=== PATIENT | female | born 1980 | race African-American/Black ===

== ENCOUNTER 2018-01-29 15:51 | Emergency (ER) | payer OTHER ==
--- NOTE | 2018-01-29 16:00 | PDOC ---
Rapid Medical Evaluation Time Seen by Provider: 01/29/18 15:57 Medical Evaluation: Allergies Allergy/AdvReac Type Severity Reaction Status Date / Time No Known Allergies Allergy Verified 01/29/18 15:56 01/29/18 15:57 I have performed a brief in-person evaluation of this patient. the patient presents with a chief complaint of burning with urination, and thick discharge x 1 week Pertinent physical exam findings: NAD even and unlabored breathing non tender abdomen, mild tenderness over mid suprapubis area I have ordered the following: urinalysis, urine culture The patient will proceed to the
[2018-01-29 16:02] VITALS: BP 123/65; PULSE 84; TEMP 99.1; BMI 29.2
[2018-01-29] MEDS ORDERED: AZITHROMYCIN 1 GM PACKET PO ONE (16:38)
--- NOTE | 2018-01-29 16:38 | PDOC ---
History of Present Illness - General Chief Complaint: Urinary Problem Stated Complaint: EVALUATION Time Seen by Provider: 01/29/18 15:57 History Source: Patient Exam Limitations: No Limitations - History of Present Illness Initial Comments: 01/29/18 16:35 c/o one week vaginal discharge and burning with urination. denies abd pain or rectal pain. Pt states she is sexually active with one women using dildos . Pt states the dildo causes her discomfort and then notices a discharge. pt states she only has the discharge when using the dildo. no allergies . Timing/Duration: reports: constant Quality: reports: mild Past History - Past Medical History Allergies/Adverse Reactions: Allergies Allergy/AdvReac Type Severity Reaction Status Date / Time No Known Allergies Allergy Verified 01/29/18 15:56 Home Medications: Ambulatory Orders Mirtazapine [Remeron -] 30 mg PO DAILY 01/29/18 metroNIDAZOLE 0.75% VAG. GEL [Metrogel 0.75% *Vaginal Gel* -] 1 applic VG HS #5 tube 01/29/18 COPD: No Other medical history: HEMOPHILIA - Suicide/Smoking/Psychosocial Hx Smoking History: Current some day smoker Have you smoked in the past 12 months: Yes Number of Cigarettes Smoked Daily: 3 Information on smoking cessation initiated: No *Physical Exam - Vital Signs Last Vital Signs Temp Pulse Resp BP Pulse Ox 99.1 F 84 19 123/65 100 01/29/18 15:56 01/29/18 15:56 01/29/18 15:56 01/29/18 15:56 01/29/18 15:56 - Physical Exam General Appearance: Yes: Nourished, Appropriately Dressed HEENT: positive: EOMI, KIM Neck: positive: Supple Respiratory/Chest: positive: Lungs Clear, Normal Breath Sounds Cardiovascular: positive: Regular Rhythm, Regular Rate Female Pelvic Exam: positive: discharge (white discharge , watery). negative: normal size ovaries, adnexal tenderness Gastrointestinal/Abdominal: positive: Normal Bowel Sounds, Soft Lymphatic: negative: Adenopathy Musculoskeletal: positive: Normal Inspection Extremity: positive: Normal Capillary Refill, Normal Inspection, Normal Range of Motion Integumentary: positive: Normal Color, Dry, Warm Neurologic: positive: Fully Oriented, Alert, Normal Mood/Affect, Normal Response , Motor Strength 5/5 Medical Decision Making - Medical Decision Making 01/29/18 16:38 cc: vaginal discharge urinary burning and urgency denies back pain or abd pain no history of STD in the past will treat to cover for Gc/Chlamydia *DC/Admit/Observation/Transfer Diagnosis at time of Disposition: Vaginitis Qualifiers: Chronicity: acute Qualified Code(s): N76.0 - Acute vaginitis - Discharge Dispostion Disposition: HOME Condition at time of disposition: Good - Prescriptions Prescriptions: metroNIDAZOLE 0.75% VAG. GEL [Metrogel 0.75% *Vaginal Gel* -] 1 applic VG HS #5 tube - Referrals - Patient Instructions Additional Instructions: no sexual activity and symptoms have resolved and you are notified of the results of the tests done today follow up with [facility] for annual HIV testing any worsening symptoms return to the ER - Post Discharge Activity
[2018-01-29] MEDS ORDERED: AZITHROMYCIN 250 MG TABLET ONE (16:42)
[2018-01-29] MEDS ORDERED: LIDOCAINE HCL 1%, 10 MG/ML (20ML VIAL) ONE (16:46)
[2018-01-29 16:54] LABS: URINE APPEARANCE CLEAR; URINE BILIRUBIN NEGATIVE (<2.0 mg/dL); URINE COLOR YELLOW; URINE GLUCOSE (UA) NEGATIVE (NEGATIVE); URINE KETONE NEGATIVE (NEGATIVE); URINE LEUK ESTERASE NEGATIVE (NEGATIVE); URINE NITRITE NEGATIVE (NEGATIVE); URINE PROTEIN NEGATIVE (NEGATIVE); URINE UROBILINOGEN NEGATIVE mg/dL (0.2-1.0)
[2018-01-29 17:41] LABS: EPI CELLS RARE /HPF (FEW); URINE MUCUS RARE
== END 2018-01-29 17:40 | disposition home or self-care (01) ==
LOC: JERFT 15:51
DX: N76.0 Acute vaginitis (principal); F17.210 Nicotine dependence, cigarettes, uncomplicated
CPT/HCPCS: 36415; 81003; 81015; 87070; 87086; 87186; 87205; 87491; 87591; 99281-25

== ENCOUNTER 2018-05-12 17:19 | Emergency (ER) | payer SELFPAY ==
--- NOTE | 2018-05-12 17:29 | PDOC ---
Rapid Medical Evaluation Time Seen by Provider: 05/12/18 17:27 Medical Evaluation: Allergies Allergy/AdvReac Type Severity Reaction Status Date / Time No Known Allergies Allergy Verified 01/29/18 15:56 05/12/18 17:27 I have performed a brief in-person evaluation of this patient. The patient presents with a chief complaint of: dysuria and urinary frequency X1wk Pertinent physical exam findings:none I have ordered the following:ua/ucx The patient will proceed to the ED for further evaluation. Discharge Disposition - Diagnosis Urinary frequency - Referrals - Patient Instructions - Post Discharge Activity
[2018-05-12 17:32] VITALS: BP 127/68; PULSE 82; TEMP 98; BMI 29.3
--- NOTE | 2018-05-12 18:17 | PDOC ---
History of Present Illness - General Chief Complaint: Urinary Problem Stated Complaint: UTI Time Seen by Provider: 05/12/18 17:27 History Source: Patient Exam Limitations: Clinical Condition - History of Present Illness Initial Comments: 05/12/18 18:12 Patient with no sig Past medical history present with complain of 1 week history of urinary frequency and dysuria and burning with urination. Patient also report feeling of a bump on vulva area in the right side which is painful for 2 weeks now. Denies any vaginal discharge, bleeding or any other symptoms. Patient is sexually active with one female partner. Timing/Duration: 1 week Past History - Past Medical History Allergies/Adverse Reactions: Allergies Allergy/AdvReac Type Severity Reaction Status Date / Time No Known Allergies Allergy Verified 05/12/18 17:32 Home Medications: Ambulatory Orders Mirtazapine [Remeron -] 30 mg PO DAILY 01/29/18 Fluconazole [Diflucan] 150 mg PO ONCE #1 tablet 05/12/18 Mupirocin Ointment [Bactroban 2% Ointment -] 1 applic TP BID #1 tube 05/12/18 Sulfamethoxazole/Trimethoprim [Bactrim Ds Tablet] 1 each PO BID 5 Days #10 tablet 05/12/18 COPD: No - Suicide/Smoking/Psychosocial Hx Smoking History: Never smoked Have you smoked in the past 12 months: No Number of Cigarettes Smoked Daily: 3 Information on smoking cessation initiated: No Hx Alcohol Use: No Drug/Substance Use Hx: No Review of Systems - Review of Systems Able to Perform ROS?: Yes Is the patient limited [place] proficient: No Constitutional: No: Chills, Diaphoresis, Fever, Loss of Appetite, Malaise, Night Sweats, Weakness, Weight Stable, Unintentional Wgt. Loss, Unexplained wgt Loss, Other HEENTM: No: Eye Pain, Blurred Vision, Tearing, Recent change in vision, Double Vision, Cataracts, Ear Pain, Ocular Prothesis, Ear Discharge, Nose Pain, Nose Congestion, Tinnitus, Nose Bleeding, Hearing Loss, Throat Pain, Throat Swelling , Mouth Pain, Dental Problems, Difficulty Swallowing, Mouth Swelling, Other Respiratory: No: Cough, Orthopnea, Shortness of Breath, SOB with Exertion, SOB at Rest, Stridor, Wheezing, Productive cough, Hemoptysis, Other Cardiac (ROS): No: Chest Pain, Edema, Irregular Heart Rate, Lightheadedness, Palpitations, Syncope, Chest Tightness, Other ABD/GI: No: Abdominal Distended, Abd. Pain w/ defecation, Blood Streaked Bowels , Constipated, Diarrhea, Difficulty Swallowing, Nausea, Poor Appetite, Poor Fluid Intake, Rectal Bleeding, Vomiting, Indigestion, Abdominal cramping, Tarry Stools, Other : Yes: See HPI, Burning, Dysuria, Frequency. No: Flank Pain, Incontinence, Urgency Musculoskeletal: No: Back Pain, Gout, Joint Pain, Joint Swelling, Muscle Pain, Muscle Weakness, Neck Pain, Joint Stiffness, Other Integumentary: Yes: See HPI, Lumps (right vulva area). No: Erythema, Pruritus All Other Systems: Reviewed and Negative *Physical Exam - Vital Signs Last Vital Signs Temp Pulse Resp BP Pulse Ox 98.0 F 82 16 127/68 100 05/12/18 17:29 05/12/18 17:29 05/12/18 17:29 05/12/18 17:29 05/12/18 17:29 - Physical Exam Comments: 05/12/18 18:14 GENERAL: Well developed, well nourished. Awake and alert. No acute distress. HEENT: Normocephalic, atraumatic. PERRLA, EOMI. No conjunctival pallor. Sclera are non- icteric. Moist mucous membranes. Oropharynx is clear. NECK: Supple. Full ROM. No JVD. Carotid pulses 2+ and symmetric, without bruits. No thyromegaly. No lymphadenopathy. CARDIOVASCULAR: Regular rate and rhythm. No murmurs, rubs, or gallops. Distal pulses are 2+ and symmetric. PULMONARY: No evidence of respiratory distress. Lungs clear to auscultation bilaterally. No wheezing, rales or rhonchi. ABDOMINAL: Soft. Non-tender. Non-distended. No rebound or guarding. No organomegaly. Normoactive bowel sounds. MUSCULOSKELETAL Normal range of motion at all joints. No bony deformities or tenderness. No CVA tenderness. EXTREMITIES: No cyanosis. No clubbing. No edema. No calf tenderness. SKIN: small 1mm hard induration to right labia majora of vulva c/w folliculitis from shaving. : small amount of patchy white non-malodorous discharge in vaginal vault. no visible lesions. no blood in vault NEUROLOGICAL: Alert, awake, appropriate. Cranial nerves 2-12 intact. No deficits to light touch and temperature in face, upper extremities and lower extremities. No motor deficits in the in face, upper extremities and lower extremities. Normoreflexic in the upper and lower extremities. Normal speech. Toes are down- going bilaterally. Gait is normal without ataxia. PSYCHIATRIC: Cooperative. Good eye contact. Appropriate mood and affect. General Appearance: Yes: Nourished, Appropriately Dressed. No: Apparent Distress Medical Decision Making - Medical Decision Making 05/12/18 18:17 Patient with no sig Past medical history present with complain of of a week history of urinary frequency and dysuria and burning with urination. Patient also with complain of bump on right vulvar area. Exam shows small hard induration to right labia majora consistent with folliculitis from shaving. Vaginal exam shows small amounts of white discharge in vaginal vault. Cultures of discharge sent. UA and urine culture sent. Treat based on urinary results *DC/Admit/Observation/Transfer Diagnosis at time of Disposition: Urinary frequency, Folliculitis Vaginitis Qualifiers: Chronicity: acute Qualified Code(s): N76.0 - Acute vaginitis - Discharge Dispostion Disposition: HOME Condition at time of disposition: Stable Decision to Admit order: No - Prescriptions Prescriptions: Fluconazole [Diflucan] 150 mg PO ONCE #1 tablet Mupirocin Ointment [Bactroban 2% Ointment -] 1 applic TP BID #1 tube Sulfamethoxazole/Trimethoprim [Bactrim Ds Tablet] 1 each PO BID 5 Days #10 tablet - Referrals Referrals: Lara Vogt MD [Staff Physician] - - Patient Instructions Printed Discharge Instructions: Vaginal Yeast Infection, DI for Urinary Tract Infection (UTI) Additional Instructions: Take medication as prescribed. Follow up with her [employer] TECHNICIAN for reassessment - Post Discharge Activity Forms/Work/School Notes: Back to Work
[2018-05-12 18:51] LABS: URINE APPEARANCE SLCLOUDY; URINE BILIRUBIN NEGATIVE (<2.0 mg/dL); URINE COLOR YELLOW; URINE GLUCOSE (UA) NEGATIVE (NEGATIVE); URINE KETONE NEGATIVE (NEGATIVE); URINE NITRITE POSITIVE (NEGATIVE); URINE UROBILINOGEN NEGATIVE mg/dL (0.2-1.0)
[2018-05-12 18:52] LABS: URINE LEUK ESTERASE 2+ (NEGATIVE); URINE PROTEIN 1+ (NEGATIVE)
[2018-05-12 19:21] LABS: EPI CELLS RARE /HPF (FEW); URINE BACTERIA MODERATE /hpf (NONE SEEN); URINE MUCUS RARE
[2018-05-12 19:36] LABS: HCG,QUALITATIVE URINE Negative
== END 2018-05-12 19:03 | disposition home or self-care (01) ==
LOC: JERFT 17:19
DX: R35.0 Frequency of micturition (principal); N76.0 Acute vaginitis; L73.9 Follicular disorder, unspecified
CPT/HCPCS: 81003; 81015; 84703; 87070; 87086; 87186; 87205; 99281-25

== ENCOUNTER 2018-07-13 10:18 | Emergency (ER) | payer BC, OTHER ==
[2018-07-13 10:34] VITALS: BP 122/66; PULSE 90; TEMP 99.6; BMI 29.0
[2018-07-13] MEDS ORDERED: ACETAMINOPHEN 325 MG TABLET (FP) PO ONE (10:59)
[2018-07-13] MEDS ORDERED: ACETAMINOPHEN 325 MG TABLET (FP) ONE (11:00)
--- NOTE | 2018-07-13 11:04 | PDOC ---
History of Present Illness - General Chief Complaint: Cold Symptoms Stated Complaint: FLU LIKE SYMPTOMS Time Seen by Provider: 07/13/18 10:54 History Source: Patient Exam Limitations: No Limitations - History of Present Illness Initial Comments: 07/13/18 10:59 38 yr female with c/o headache sore throat runny nose body aches and fever, neg nvd. girlfriend with same symptoms. no PMHX no allergies, pt is a smoker. Severity: reports: moderate Episode Description: 2-3 days Past History - Past Medical History Allergies/Adverse Reactions: Allergies Allergy/AdvReac Type Severity Reaction Status Date / Time No Known Allergies Allergy Verified 07/13/18 10:31 Home Medications: Ambulatory Orders NK [No Known Home Medication] 07/13/18 COPD: No - Suicide/Smoking/Psychosocial Hx Smoking History: Never smoked Have you smoked in the past 12 months: No Number of Cigarettes Smoked Daily: 3 Hx Alcohol Use: No Drug/Substance Use Hx: No Review of Systems - Review of Systems Able to Perform ROS?: Yes Is the patient limited [place] proficient: No Constitutional: Yes: Symptoms Reported HEENTM: Yes: Symptoms Reported Respiratory: Yes: Symptoms reported, Cough Cardiac (ROS): No: Symptoms Reported ABD/GI: No: Symptoms Reported : No: Symptoms Reported Musculoskeletal: Yes: Symptoms Reported *Physical Exam - Vital Signs Last Vital Signs Temp Pulse Resp BP Pulse Ox 99.6 F 90 18 122/66 99 07/13/18 10:32 07/13/18 10:32 07/13/18 10:32 07/13/18 10:32 07/13/18 10:32 - Physical Exam General Appearance: Yes: Nourished, Appropriately Dressed HEENT: positive: EOMI, KIM, TMs Normal. negative: Nasal Congestion Neck: positive: Supple. negative: Tender Respiratory/Chest: positive: Lungs Clear, Normal Breath Sounds. negative: Chest Tender Cardiovascular: positive: Regular Rhythm, Regular Rate Gastrointestinal/Abdominal: positive: Normal Bowel Sounds, Soft Musculoskeletal: positive: Normal Inspection Extremity: positive: Normal Capillary Refill, Normal Inspection, Normal Range of Motion Integumentary: positive: Normal Color, Dry, Warm Neurologic: positive: ethanol operations manager II-XII NML intact, Fully Oriented, Alert, Normal Mood/ Affect, Normal Response, Motor Strength 5/5 Medical Decision Making - Medical Decision Making 07/13/18 11:04 cc: headache body aches, sore throat will check rapid strep and flu swab tylenol now *DC/Admit/Observation/Transfer Diagnosis at time of Disposition: Upper respiratory infection, viral - Discharge Dispostion Disposition: HOME Condition at time of disposition: Good - Referrals Referrals: Naif Hoover MD [Staff Physician] - - Patient Instructions Printed Discharge Instructions: DI for Viral Upper Respiratory Infection -- Adult Additional Instructions: you do not have the FLU or strep throat you have a cold virus upper respiratory drink pleanty of fluids take tylenol or ibuprofen as directed for pain (over the counter) get vicks vapor rub to put on throat and chest at bedtime increase your intake of vitamin C , oranges, orange juice or vitamin c supplements follow with your doctor if any worsening symptoms or if you need a primary care call the doctor below - Post Discharge Activity Forms/Work/School Notes: Back to Work
== END 2018-07-13 12:00 | disposition home or self-care (01) ==
LOC: JERFT 10:18
DX: J06.9 Acute upper respiratory infection, unspecified (principal); B97.89 Other viral agents as the cause of diseases classified elsewhere
CPT/HCPCS: 87070; 87430; 87804; 99281-25

== ENCOUNTER 2018-08-01 17:22 | Emergency (ER) | payer BC, OTHER ==
[2018-08-01 17:31] VITALS: BP 115/74; PULSE 86; TEMP 98.7; BMI 25.0
--- NOTE | 2018-08-01 17:36 | PDOC ---
History of Present Illness - General Chief Complaint: Vaginal Sxs Stated Complaint: ABDOMINAL PAIN Time Seen by Provider: 08/01/18 17:36 - History of Present Illness Initial Comments: 08/01/18 17:37 Ms. Dawson is a 38 yo female w/ no significant pmh who presents for evaluation of 2 week history of "bump" adjacent to her genital area that she reports has been bothering her. Ms. Dawson relates she had a similar presentation previously and was given mupirocin for an "ingrown hair" however reports the same cream she had left over has been unhelpful. Patient reports she noticed some discharge as well while cleaning herself however has been unable to visualize the area. The patient denies chest pain, shortness of breath, headache and dizziness. Denies fever, chills, nausea, vomit, diarrhea and constipation. Denies dysuria, frequency, urgency and hematuria. Past History - Past Medical History Allergies/Adverse Reactions: Allergies Allergy/AdvReac Type Severity Reaction Status Date / Time No Known Allergies Allergy Verified 07/13/18 10:31 Home Medications: Ambulatory Orders Cephalexin [Keflex] 500 mg PO QID #40 capsule 08/01/18 Sulfamethoxazole/Trimethoprim [Bactrim Ds -] 2 tab PO BID #40 tablet 08/01/18 COPD: No CHF: No - Suicide/Smoking/Psychosocial Hx Smoking History: Never smoked Have you smoked in the past 12 months: No Number of Cigarettes Smoked Daily: 3 Information on smoking cessation initiated: No Hx Alcohol Use: No Drug/Substance Use Hx: No Substance Use Type: None Review of Systems - Review of Systems Comments:: 08/01/18 17:38 GENERAL/CONSTITUTIONAL: No fever or chills. No weakness. HEAD, EYES, EARS, NOSE AND THROAT: No change in vision. No ear pain or discharge. No sore throat. CARDIOVASCULAR: No chest pain or shortness of breath RESPIRATORY: No cough, wheezing, or hemoptysis. GASTROINTESTINAL: No nausea, vomiting, diarrhea or constipation. GENITOURINARY: +Symptoms as described. No other dysuria, frequency, or change in urination. MUSCULOSKELETAL: No joint or muscle swelling or pain. No neck or back pain. SKIN: No rash NEUROLOGIC: No headache, vertigo, loss of consciousness, or change in strength/ sensation. ENDOCRINE: No increased thirst. No abnormal weight change HEMATOLOGIC/LYMPHATIC: No anemia, easy bleeding, or history of blood clots. ALLERGIC/IMMUNOLOGIC: No hives or skin allergy. *Physical Exam - Vital Signs Last Vital Signs Temp Pulse Resp BP Pulse Ox 98.7 F 86 16 115/74 100 08/01/18 17:22 08/01/18 17:22 08/01/18 17:22 08/01/18 17:22 08/01/18 17:22 - Physical Exam Comments: 08/01/18 17:38 GENERAL: Awake, alert, and fully oriented, in no acute distress HEAD: No signs of trauma, normocephalic, atraumatic EYES: PERRLA, EOMI, sclera anicteric, conjunctiva clear ENT: Auricles normal inspection, hearing grossly normal, nares patent, oropharynx clear without exudates. Moist mucosa NECK: Normal ROM, supple, no lymphadenopathy, JVD, or masses LUNGS: No distress, speaks full sentences, clear to auscultation bilaterally HEART: Regular rate and rhythm, normal S1 and S2, no murmurs, rubs or gallops, peripheral pulses normal and equal bilaterally. ABDOMEN: Soft, nontender, normoactive bowel sounds. No guarding, no rebound. No masses EXTREMITIES: Normal inspection, Normal range of motion, no edema. No clubbing or cyanosis. NEUROLOGICAL: Cranial nerves II through XII grossly intact. Normal speech, normal gait, no focal sensorimotor deficits SKIN: Warm, Dry, normal turgor, no rashes or lesions noted. RECTAL: +2cm x 3cm indurated area on left buttock. Rectal exam negative for tracking. Medical Decision Making - Medical Decision Making 08/01/18 18:14 Ms. Dawson is a 38 yo female w/ pmh as described who presents for evaluation of indurated region as described. Patient requesting STD/HIV testing as well. Bedside US revealed no drainable area in region. Patient counceled and placed on keflex and bactrim for 10 days. 08/01/18 19:40 Labs significant for urine WBC's as below. Covered with previously proscribed keflex. HIV negative. GC pending and will contact patient if positive. Discharging to home. Laboratory Results - last 24 hr 08/01/18 08/01/18 18:30 18:35 Urine Color Yellow Urine Appearance Clear Urine pH 6.0 Ur Specific [place] 1.027 Urine Protein Negative Urine Glucose (UA) Negative Urine Ketones Negative Urine Blood Negative Urine Nitrite Negative Urine Bilirubin Negative Urine Urobilinogen Negative Ur Leukocyte Esterase 1+ H Urine WBC (Auto) 33 Urine RBC (Auto) 6 Ur Epithelial Cells Rare Urine Mucus Rare Urine HCG, Qual Negative HIV 1&2 Antibody Screen Negative HIV P24 Antigen Negative *DC/Admit/Observation/Transfer Diagnosis at time of Disposition: Soft tissue infection - Discharge Dispostion Disposition: HOME - Prescriptions Prescriptions: Cephalexin [Keflex] 500 mg PO QID #40 capsule Sulfamethoxazole/Trimethoprim [Bactrim Ds -] 2 tab PO BID #40 tablet - Referrals Referrals: Dayami Corrigan MD [Primary Care Provider] - Kvng Holguin MD [Staff Physician] - - Patient Instructions Printed Discharge Instructions: DI for Anal Abscess Additional Instructions: You were evaluated today in the ED for your abscess. We were unable to drain it at this time. We have sent prescriptions to your pharmacy. Please take all medications as proscribed. Follow-up with primary care provider early next week for further evaluation. Return to ER if any fevers, chills, increase in pain, or you observe changes of area. - Post Discharge Activity
--- NOTE | 2018-08-01 17:45 | PDOC ---
Attending Attestation - Resident Resident Name: Kevin Burton - ED Attending Attestation I have performed the following: I have examined & evaluated the patient, The case was reviewed & discussed with the resident, I agree w/resident's findings & plan, Exceptions are as noted - Medical Decision Making 08/01/18 17:45 I, Dr. Rosaura St, DO, attest that this document has been prepared under my direction and personally reviewed by me in its entirety. I further attest, that it accurately reflects all work, treatment, procedures and medical decision -making performed by me. 08/01/18 18:28 a/p: 38yo female with L buttock swelling -pt with ingrown hair causing buttock induration -no fluctuance -no warmth or redness, no drainage -3x2cm indurated region to L buttock over hair follicle -pt does shave the area -had an ingrown hair a month ago at the same site and was tx with mupirocin - improved and then returned -pt requesting std testing, will send HIV and ua, urine for gc/chlam -will send labs -bedside ultrasound shows cobblestoning without discrete abscess for I&D -recommend oral abx, warm compresses to the area -discussed reasons to return and reasons for follow up with PMD answered all questions pt is stable for d/c to home on keflex and bactrim <Rosaura St - Last Filed: 08/01/18 18:28> - HPI HPI: 08/01/18 18:53 The patient is a 38 year old female with no pertinent past medical history who presents to the ED with 2 week history of ingrown hair on her left bottom buttock which has since become inflamed despite treatment with Purisin topical ointment. She denies any associated vaginal or rectal complaints, no fevers or chills, no NVD, cough, SOB, chest pain or urinary complaints. - Physicial Exam PE: 08/01/18 18:53 GENERAL: Awake, alert, and fully oriented, in no acute distress LUNGS: Breath sounds equal, clear to auscultation bilaterally. HEART: Regular rate and rhythm. ABDOMEN: Soft, nontender, normoactive bowel sounds. NEUROLOGICAL: Cranial nerves II through XII grossly intact. Normal speech, normal gait SKIN: Warm, Dry, normal turgor, 2 cm x 3cm indurated region to left buttock, tender, no redness, no warmth, no center fluctuance, no lymphadenopathy, no lymphangitic spread, no drainage - Medical Decision Making 08/01/18 18:55 Documentation prepared by Perlita Sanon, acting as medical lab specialist for Rosaura St DO. <Perlita Sanon - Last Filed: 08/01/18 18:55>
[2018-08-01] MEDS ORDERED: SULFAMETHOXAZOLE/TRIMETHOPRIM 800MG/160MG D.S. TABLET PO ONE (18:11)
[2018-08-01] MEDS ORDERED: CEPHALEXIN MONOHYDRATE 500 MG CAPSULE (UD) PO ONE (18:11)
[2018-08-01] MEDS ORDERED: CEPHALEXIN MONOHYDRATE 500 MG CAPSULE (UD) ONE (18:17)
[2018-08-01] MEDS ORDERED: SULFAMETHOXAZOLE/TRIMETHOPRIM 800MG/160MG D.S. TABLET ONE (18:18)
[2018-08-01 18:47] LABS: URINE APPEARANCE CLEAR; URINE BILIRUBIN NEGATIVE (<2.0 mg/dL); URINE COLOR YELLOW; URINE GLUCOSE (UA) NEGATIVE (NEGATIVE); URINE KETONE NEGATIVE (NEGATIVE); URINE LEUK ESTERASE 1+ (NEGATIVE); URINE NITRITE NEGATIVE (NEGATIVE); URINE PROTEIN NEGATIVE (NEGATIVE); URINE UROBILINOGEN NEGATIVE mg/dL (0.2-1.0)
[2018-08-01 18:48] LABS: HCG,QUALITATIVE URINE Negative
[2018-08-01 18:54] LABS: EPI CELLS RARE /HPF (FEW); URINE MUCUS RARE
== END 2018-08-01 19:45 | disposition home or self-care (01) ==
LOC: SUPCPDRO 17:22 → JER 17:22
DX: K61.0 Anal abscess (principal)
CPT/HCPCS: 36415; 81003; 81015; 84703; 87389; 87491; 87591; 99282-25

== ENCOUNTER 2018-11-14 15:40 | Emergency (ER) | payer BC, OTHER ==
[2018-11-14 15:49] VITALS: BP 104/55; PULSE 72; TEMP 98.7; BMI 28.1
--- NOTE | 2018-11-14 16:54 | PDOC ---
History of Present Illness - General Chief Complaint: Rash Stated Complaint: CYCTS IN THE MOUTH Time Seen by Provider: 11/14/18 16:40 History Source: Patient Exam Limitations: No Limitations - History of Present Illness Initial Comments: 11/14/18 17:15 38 yo F comes in c/o a growth to her inner cheek which she has had for years, she keeps biting this side of her cheek and would like it removed. NO other complaints today, no pain, no swelling, no erythema, no discharge, no fever/ chills. Pt has not seen her dentist for her symptoms Past History - Past Medical History Allergies/Adverse Reactions: Allergies Allergy/AdvReac Type Severity Reaction Status Date / Time No Known Allergies Allergy Verified 11/14/18 15:49 Home Medications: Ambulatory Orders Cephalexin Monohydrate [Keflex -] 500 mg PO Q8H #21 capsule 08/02/18 Sulfamethoxazole/Trimethoprim [Bactrim *Ds*] 1 each PO BID #14 tablet 08/02/18 COPD: No CHF: No - Suicide/Smoking/Psychosocial Hx Smoking History: Current every day smoker Have you smoked in the past 12 months: No Number of Cigarettes Smoked Daily: 10 Information on smoking cessation initiated: No Hx Alcohol Use: Yes (occasional) Drug/Substance Use Hx: No Substance Use Type: None Review of Systems - Review of Systems Able to Perform ROS?: Yes Constitutional: No: Chills, Fever, Malaise, Night Sweats HEENTM: No: Eye Pain, Recent change in vision, Throat Pain Respiratory: No: Cough, Shortness of Breath Cardiac (ROS): No: Chest Pain, Palpitations, Chest Tightness ABD/GI: No: Diarrhea, Nausea, Vomiting, Abdominal cramping : No: Dysuria, Hematuria Musculoskeletal: No: Back Pain Integumentary: No: Rash Neurological: No: Headache, Numbness, Dizziness Psychiatric: No: Change in Appetite Endocrine: No: Unexplained Weight Loss *Physical Exam - Vital Signs Last Vital Signs Temp Pulse Resp BP Pulse Ox 98.7 F 72 19 104/55 L 100 11/14/18 15:47 11/14/18 15:47 11/14/18 15:47 11/14/18 15:47 11/14/18 15:47 - Physical Exam General Appearance: Yes: Nourished. No: Apparent Distress HEENT: positive: KIM, Normal Voice, Other (L inner buccal area with pea size growth without surrounding erythema, no signs of infection, no fluctuance, no induration, no tenderness). negative: Pale Conjunctivae, Scleral Icterus (R), Scleral Icterus (L) Neck: positive: Supple. negative: Decreased range of motion Respiratory/Chest: negative: Respiratory Distress, Accessory Muscle Use Cardiovascular: positive: Regular Rate Musculoskeletal: negative: Decreased Range of Motion Extremity: positive: Normal Capillary Refill, Normal Inspection, Normal Range of Motion. negative: Tender, Pedal Edema Integumentary: positive: Normal Color, Dry. negative: Jaundice, Rash Neurologic: positive: Fully Oriented, Alert, Normal Mood/Affect Moderate Sedation - Procedure Monitoring Vital Signs: Procedure Monitoring Vital Signs Temperature 98.7 F 11/14/18 15:47 Pulse Rate 72 11/14/18 15:47 Respiratory Rate 19 11/14/18 15:47 Blood Pressure 104/55 L 11/14/18 15:47 O2 Sat by Pulse Oximetry (%) 100 11/14/18 15:47 Medical Decision Making - Medical Decision Making 11/14/18 17:17 38 yo F w/ inner buccal growth, will refer to her dentist or will give oromaxillofacial surgery info for follow up. NO signs of infection, no indication for emergency intervention. Return for worsening/concerning symptoms Pt verbalizes understanding and agrees with plan *DC/Admit/Observation/Transfer Diagnosis at time of Disposition: Gum lesion - Discharge Dispostion Disposition: HOME Condition at time of disposition: Stable - Referrals - Patient Instructions Additional Instructions: Please follow up with your regular dentist or you may go to [facility] oromaxillofacial surgery office ([facility]) at [address] [place] [address]. [phone]- You may walk in Friday at 8:30am - Post Discharge Activity
== END 2018-11-14 16:58 | disposition home or self-care (01) ==
LOC: JERFT 15:40
DX: K13.79 Other lesions of oral mucosa (principal); K09.9 Cyst of oral region, unspecified
CPT/HCPCS: 99281-25

== ENCOUNTER 2020-05-02 16:28 | Emergency (ER) | payer BC ==
[2020-05-02 16:34] VITALS: BP 126/61; PULSE 80; TEMP 98.4; BMI 29.8
--- NOTE | 2020-05-02 17:11 | PDOC ---
History of Present Illness - General Chief Complaint: Urinary Problem Stated Complaint: PAINFUL URINATION Time Seen by Provider: 05/02/20 16:37 History Source: Patient Exam Limitations: No Limitations - History of Present Illness Initial Comments: 05/02/20 17:08 Patient is a 40-year-old female who presents the ED with complaint of dysuria, frequency, urgency for the last several days. She states she gets frequent UTIs and states her symptoms feel similar. She denies fevers or chills. She denies any back pain. She denies any concern for STDs. The patient also states that she would like to get COVID antibody testing as she was very sick in December/January and would like to know if she has antibodies. She denies any cough, chills, body aches, fevers, loss of taste, recent travel or known COVID contacts. Past History - Medical History Allergies/Adverse Reactions: Allergies Allergy/AdvReac Type Severity Reaction Status Date / Time No Known Allergies Allergy Verified 05/02/20 16:30 Home Medications: Ambulatory Orders Cephalexin Monohydrate [Keflex -] 500 mg PO Q8H #21 capsule 08/02/18 Sulfamethoxazole/Trimethoprim [Bactrim *Ds*] 1 each PO BID #14 tablet 08/02/18 Cefdinir [Omnicef -] 300 mg PO BID #20 capsule 12/30/19 Phenazopyridine HCl [Pyridium -] 100 mg PO PC #6 tablet 12/30/19 Cephalexin [Keflex] 500 mg PO BID #14 capsule 05/02/20 COPD: No CHF: No - Reproductive History Is Patient Now?: No - Immunization History Immunization Up to Date: Yes - Psycho-Social/Smoking History Smoking History: Current every day smoker Have you smoked in the past 12 months: No Number of Cigarettes Smoked Daily: 10 Information on smoking cessation initiated: No - Substance Abuse Hx (Audit-C & DAST Scrn) How often the patient has a drink containing alcohol: Never Score: In Men: 4 or > Positive; In Women: 3 or > Positive: 0 Screen Result (Pos requires Nsg. Audit-10AR): Negative In the last yr the pt used illegal drug/Rx for NonMed reason: No Score: Yes response is considered Positive: 0 Screen Result (Positive result requires Nsg. DAST-10): Negative Review of Systems - Review of Systems Comments:: 05/02/20 17:09 - Review of Systems Able to Perform ROS?: Yes Constitutional: No: Fever, Chills, Loss of Appetite, Night Sweats, Weakness HEENTM: No: Eye Pain, Vision changes, Ear Pain, Throat Pain, Throat Swelling, Mouth Pain, Difficulty Swallowing Respiratory: No: Cough, Shortness of Breath, Wheezing, Sputum Production Cardiac (ROS): No: Chest Pain, Chest Tightness, Palpitations, Irregular Heart Beat, Edema ABD/GI: No: Nausea, Vomiting, Abdominal Pain, Diarrhea : Positive dysuria, frequency, urgency, hesitancy no hematuria, no vaginal discharge or pain Musculoskeletal: No: Muscle Pain, Back Pain, Joint Pain, Muscle Weakness, Neck Pain Integumentary: No: Lesions, Rash Neurological: No: Headache, Numbness, Tingling, Weakness, Speech Difficulties *Physical Exam - Vital Signs Last Vital Signs Temp Pulse Resp BP Pulse Ox 98.4 F 80 20 126/61 100 05/02/20 16:30 05/02/20 16:30 05/02/20 16:30 05/02/20 16:30 05/02/20 16:30 - Physical Exam 05/02/20 17:10 - Physical Exam General Appearance: Nourished, Appropriately Dressed, No Distress HEENT: EOMI, Normal Voice, Hearing Grossly Normal Neck: Supple, No Lymphadenopathy (R), No Lymphadenopathy (L), No Rigidity, No Decreased range of motion Respiratory/Chest: Lungs Clear, Normal Breath Sounds. No Respiratory Distress, No Accessory Muscle Use Cardiovascular: Regular Rhythm, Regular Rate, S1, S2 Gastrointestinal/Abdominal: Normal Bowel Sounds, Soft. Non-tender, No Guarding, No Rebound, No Rigidity; mild suprapubic tenderness to palpation, no CVA tenderness bilaterally Musculoskeletal: Normal Inspection. No Decreased Range of Motion Extremity: Normal Capillary Refill, Normal Inspection Integumentary: Normal Color, Dry. No Rash Neurologic: testing analyst II-XII NML intact, Fully Oriented, Alert, Normal Mood/Affect, Normal Response ED Treatment Course - ADDITIONAL ORDERS Additional order review: 05/02/20 17:50 Laboratory Tests 05/02/20 05/02/20 17:00 17:00 Urine Color Yellow Urine Appearance Cloudy Urine pH 7.5 D Ur Specific [place] 1.025 Urine Protein Trace Urine Glucose (UA) Negative Urine Ketones Negative Urine Blood 2+ H Urine Nitrite Negative Urine Bilirubin Negative Urine Urobilinogen 1.0 Ur Leukocyte Esterase 1+ H Urine WBC (Auto) 203 Urine RBC (Auto) 75 Urine Casts (Auto) 9 U Epithel Cells (Auto) 7 Urine Bacteria (Auto) >9,000 Urine HCG, Qual Negative SARS-CoV-2 Ab Interp Pending Medical Decision Making - Medical Decision Making 05/02/20 17:10 Assessment: Patient is a 40-year-old female with UTI symptoms and requested COVID antibody testing. Plan: -UA, urine culture, urine hCG ordered, labs sent -SARS antibody testing, labs sent -Will reassess 05/02/20 17:50 The patient's urinalysis is positive for UTI. We will treat her with Keflex as she was treated with Macrobid in December with a pansensitive urine culture. We will give her a call with her COVID antibody testing once it becomes available. She understands and agrees with this treatment and she is stable for discharge. Her first dose of antibiotic was given to her in the emergency department today. Discharge - Discharge Information Problems reviewed: Yes Clinical Impression/Diagnosis: UTI (urinary tract infection) Qualifiers: Urinary tract infection type: acute cystitis Hematuria presence: without hematuria Qualified Code(s): N30.00 - Acute cystitis without hematuria Condition: Stable Disposition: HOME - Additional Discharge Information Prescriptions: Cephalexin [Keflex] 500 mg PO BID #14 capsule - Follow up/Referral Referrals: Hany Martinez MD [Staff Physician] - Call tomorrow - Patient Discharge Instructions Patient Printed Discharge Instructions: DI for Urinary Tract Infection (UTI) Additional Instructions: Take the antibiotics as prescribed and complete the entire course. Be sure to follow-up with your primary doctor within 1 to 2 days for repeat evaluation. You have been given a referral to urology for further evaluation for your freque nt UTIs. You will also get a call with the results of your COVID antibody testing as soon as it becomes available. - Post Discharge Activity
[2020-05-02 17:44] LABS: HCG,QUALITATIVE URINE Negative
[2020-05-02 17:46] LABS: EPI CELLS 7 /uL (0-25.1); HYALINE CASTS 9 /uL (0-3.1); PH,URINE 7.5 (5.0-8.0); URINE APPEARANCE CLOUDY; URINE BACTERIA >9,000 /uL (0-1359); URINE BILIRUBIN NEGATIVE (NEGATIVE); URINE COLOR YELLOW; URINE GLUCOSE (UA) NEGATIVE (NEGATIVE); URINE KETONE NEGATIVE (NEGATIVE); URINE LEUK ESTERASE 1+ (NEGATIVE); URINE NITRITE NEGATIVE (NEGATIVE); URINE PROTEIN TRACE (NEGATIVE); URINE RBC 75 /uL (0-23.9); URINE WBC 203 /uL (0-25.8)
[2020-05-02] MEDS ORDERED: CEPHALEXIN MONOHYDRATE 500 MG CAPSULE (UD) PO ONE (17:51)
[2020-05-02] MEDS ORDERED: CEPHALEXIN MONOHYDRATE 500 MG CAPSULE (UD) ONE (17:52)
== END 2020-05-02 17:57 | disposition home or self-care (01) ==
LOC: JERFT 16:28 → JER 16:28 → JERFT 17:57
DX: N30.00 Acute cystitis without hematuria (principal)
CPT/HCPCS: 36415; 81003; 84703; 86769; 87086; 87186; 99283-25

== ENCOUNTER 2020-09-30 08:11 | Emergency (ER) | payer BC, OTHER ==
[2020-09-30 08:32] VITALS: BP 129/74; PULSE 78; TEMP 98.1; BMI 30.5
[2020-09-30] MEDS ORDERED: KETOROLAC TROMETHAMINE 60 MG/2 ML VIAL IM ONE (09:00)
[2020-09-30] MEDS ORDERED: KETOROLAC TROMETHAMINE 60 MG/2 ML VIAL ONE (09:07)
[2020-09-30 10:02] LABS: POTASSIUM 4.5 mmol/L (3.5-5.1)
[2020-09-30 10:04] LABS: CALCIUM 9.1 mg/dL (8.5-10.1)
[2020-09-30 10:05] LABS: ALBUMIN 4.1 g/dl (3.4-5.0)
[2020-09-30 10:08] LABS: CREATININE 0.8 mg/dL (0.55-1.3)
[2020-09-30 10:10] LABS: BILIRUBIN,TOTAL 0.5 mg/dL (0.2-1); TOT PROT 7.7 g/dl (6.4-8.2)
[2020-09-30 10:26] LABS: BASO % 0.6 % (0-2.0); EOS % 1.3 % (0-4.5); HEMATOCRIT 40.7 % (32.4-45.2); HEMOGLOBIN 13.6 GM/dL (10.7-15.3); LYMPH % 26.3 % (8-40); MCH 31.2 pg (25.7-33.7); MCHC 33.5 g/dl (32.0-36.0); MEAN CELL VOLUME 93.1 fl (80-96); MEAN PLT VOLUME 8.7 fl (7.5-11.1); MONO % 8.2 % (3.8-10.2); NEUT % 63.6 % (42.8-82.8); PLATELET COUNT 269 K/MM3 (134-434); RBC 4.37 M/mm3 (3.60-5.2); RDW 12.5 % (11.6-15.6); WHITE BLOOD COUNT 9.8 K/mm3 (4.0-10.0)
[2020-09-30 10:41] LABS: BLOOD UREA NITROGEN 13.8 mg/dL (7-18)
== END 2020-09-30 11:57 | disposition home or self-care (01) ==
LOC: JER 08:11
PROC: 3E0233Z Introduction of Anti-inflammatory into Muscle, Percutaneous Approach (ICD-10-PCS; principal; 2020-09-30)
DX: I80.02 Phlebitis and thrombophlebitis of superficial vessels of left lower extremity (principal)
CPT/HCPCS: 36415; 80053; 84703; 85025; 93971-TC; 99284-25

== ENCOUNTER 2022-02-15 13:22 | Emergency (ER) | payer BC, OTHER ==
[2022-02-15 13:34] VITALS: BP 109/68; PULSE 78; TEMP 98.5; BMI 28.1
== END 2022-02-15 14:55 | disposition home or self-care (01) ==
LOC: JERFT 13:22
DX: L73.9 Follicular disorder, unspecified (principal)
CPT/HCPCS: 99282-25

== ENCOUNTER 2023-02-10 14:51 | Emergency (ER) | payer OTHER ==
[2023-02-10 14:57] VITALS: RESP 18; TEMP 97; BMI 28.1
[2023-02-10 17:38] VITALS: BP 100/55; PULSE 75
== END 2023-02-10 17:49 | disposition home or self-care (01) ==
LOC: JER 14:51
DX: M25.561 Pain in right knee (principal); M25.461 Effusion, right knee
CPT/HCPCS: 73562-TC-RT-FY; 99283-25

== ENCOUNTER 2025-02-05 13:32 | Emergency (ER) | payer OTHER ==
[2025-02-05 13:40] VITALS: BMI 25.0
[2025-02-05 14:33] LABS: ABSOLUTE IMMATURE GRANULOCYTES 0.02 x10^3/uL (0.0-0.031); BASOPHILS # 0.04 x10^3/uL (0.01-0.08); EOSINOPHIL % 0.8 % (0.7-5.8); EOSINOPHILS # 0.05 x10^3/uL (0.04-0.36); HEMATOCRIT 39.1 % (34.1-44.9); HEMOGLOBIN 13.3 g/dL (11.2-15.7); MEAN CELL VOLUME 93.8 fl (79.4-94.8); MEAN PLT VOLUME 10.2 fl (9.4-12.3); MONOCYTE # 0.62 x10^3/uL (0.24-0.86); MONOCYTE % 9.7 % (4.7-12.5); PLATELET COUNT 254 x10^3/uL (182-369); RDW 11.8 % (12.2-17.1)
[2025-02-05 14:58] LABS: PH,URINE 6.5 (5.0-8.0); URINE APPEARANCE CLEAR; URINE BILIRUBIN NEGATIVE (NEGATIVE); URINE COLOR YELLOW; URINE GLUCOSE (UA) NEGATIVE (NEGATIVE); URINE KETONE NEGATIVE (NEGATIVE); URINE LEUK ESTERASE NEGATIVE (NEGATIVE); URINE NITRITE NEGATIVE (NEGATIVE); URINE PROTEIN NEGATIVE (NEGATIVE); URINE UROBILINOGEN 0.2 mg/dL (0.2-1.0)
[2025-02-05 15:06] LABS: POTASSIUM 4.3 mmol/L (3.5-5.1)
[2025-02-05 15:07] LABS: CALCIUM 9.5 mg/dL (8.5-10.1)
[2025-02-05 15:09] LABS: ALBUMIN 3.7 g/dl (3.4-5.0); BLOOD UREA NITROGEN 15.8 mg/dL (7-18)
[2025-02-05 15:12] LABS: BILIRUBIN,TOTAL 0.5 mg/dL (0.2-1); CREATININE 0.8 mg/dL (0.55-1.3); TOT PROT 6.7 g/dl (6.4-8.2)
[2025-02-05 16:01] LABS: HCV DIAGNOSTIC IN-HOUSE W/RFLX NON-REACTIVE (NONREACTIVE)
[2025-02-05 16:03] LABS: HIV INTERPRETATION NEGATIVE (NEGATIVE)
[2025-02-05 16:59] VITALS: BP 115/66; PULSE 78; RESP 18; TEMP 98.3
== END 2025-02-05 16:59 | disposition home or self-care (01) ==
LOC: JER 13:32
DX: O09.521 Supervision of elderly multigravida, first trimester (principal); O20.9 Hemorrhage in early pregnancy, unspecified; O26.891 Other specified pregnancy related conditions, first trimester; R10.2 Pelvic and perineal pain; Z3A.00 Weeks of gestation of pregnancy not specified
CPT/HCPCS: 36415; 76817-TC; 80053; 81003; 84702; 84703; 85025; 86803; 86850; 86900; 86901; 87086; 87389; 99284-25